=== PATIENT | female | born 1985 | race Caucasian/White ===

== ENCOUNTER 2017-12-11 15:01 | Observation (INO) | payer MEDICAID ==
[~2017-12-11] VITALS: Ht 167.6 cm; Wt 109.8 kg
[2017-12-11] MEDS ORDERED: PREN-380 PO (15:31)
== END 2017-12-11 19:56 | disposition home or self-care (01) ==
LOC: MLD 15:01
PROVIDERS: ADMIT Obstetrics & Gynecology; ATTEND Obstetrics & Gynecology
DX: O26.893 Other specified pregnancy related conditions, third trimester (principal); R10.9 Unspecified abdominal pain; Z3A.39 39 weeks gestation of pregnancy
CPT/HCPCS: 76805; G0378; Q0092

== ENCOUNTER 2017-12-18 17:48 | Inpatient (IN) | payer MEDICAID ==
[~2017-12-18] VITALS: Ht 167.6 cm; Wt 114.3 kg
[~2017-12-18 17:48] MED LIST: PREN-380 PO
[2017-12-18] MEDS ORDERED: OXYTOCIN 10 UNITS/ML VIAL IM SCH (19:00)
[2017-12-18] MEDS ORDERED: NALBUPHINE 10 MG/ML AMP IVP PRN ×2 (19:00→19:35)
[2017-12-18] MEDS ORDERED: METHYLERGONOVINE 0.2 MG/ML AMP IM PRN (19:00)
[2017-12-18] MEDS ORDERED: CARBOPROST 250 MCG/ML AMP IM PRN (19:00)
[2017-12-18] MEDS ORDERED: PROMETHAZINE 25 MG/ML VIAL IVP PRN (19:00)
[2017-12-18] MEDS ORDERED: MISOPROSTOL 25 MCG TAB VG SCH (20:00)
[2017-12-18] MEDS: LACTATED RINGERS 1,000 ML IV SCH (20:04)
[2017-12-18 20:06] LABS: BASOPHILS % (AUTO) 0.2 % (0.0-2.0); EOSINOPHILS # (AUTO) 0.3 K/uL (0-0.4); EOSINOPHILS % (AUTO) 2.6 % (0.0-4.0); HEMOGLOBIN 12.9 g/dL (12.0-16.0); LYMPHOCYTES # (AUTO) 1.9 K/uL (2.5-16.5); MEAN CORPUSCULAR HEMOGLOBIN 28 pg (27-31); MEAN CORPUSCULAR HGB CONC 33 g/dL (33-37); MEAN CORPUSCULAR VOLUME 83.3 fL (80-94); MONOCYTES # (AUTO) 0.7 K/uL (0.8-1.0); MONOCYTES % (AUTO) 6.9 % (1.7-9.3); NEUTROPHILS # (AUTO) 7.2 K/uL (1.8-7.7); NEUTROPHILS % (AUTO) 71.3 % (42.2-75.2); PLATELET COUNT (AUTO) 130 K/uL (140-450); RED BLOOD CELL COUNT(AUTO) 4.68 MIL/uL (4.20-5.40); RED CELL DISTRIBUTION WIDTH 13.6 % (11.6-13.7); WHITE BLOOD COUNT (AUTO) 10.1 K/uL (4.8-10.8)
[2017-12-18 20:12] LABS: APPEARANCE,URINE CLEAR (CLEAR); BILIRUBIN,URINE NEGATIVE (NEGATIVE); BLOOD, URINE NEGATIVE (NEGATIVE); COLOR,URINE YELLOW (YELLOW); LEUKOCYTE ESTERASE ,URINE NEGATIVE (NEGATIVE); NITRITE, URINE NEGATIVE (NEGATIVE); UGLUCOSE NEGATIVE (NEGATIVE)
[2017-12-18] MEDS ORDERED: MISOPROSTOL 25 MCG TAB ONE (20:20)
[2017-12-18 20:25] LABS: CARBON DIOXIDE 22.7 mmol/L (21-32); CREATININE 0.6 mg/dL (0.6-1.3); POTASSIUM 3.7 mmol/L (3.5-5.1)
[2017-12-18 20:36] LABS: ALBUMIN 2.6 g/dL (3.4-5.0); TOTAL BILIRUBIN 0.3 mg/dL (0.0-1.0)
[2017-12-18] MEDS ORDERED: OXYTOCIN 20 UNITS in LACTATED RINGERS 1,000 ML IV SCH (21:00)
[2017-12-19] MEDS ORDERED: OXYTOCIN 20 UNITS/LR PREMIX 1,000 ML IV ONE (03:51)
[2017-12-19] MEDS: LACTATED RINGERS 1,000 ML IV SCH ×3 (05:00→22:48)
--- NOTE | 2017-12-19 09:37 | NUR ---
PATIENT HAS BEEN SCREENED AND CATEGORIZED LOW NUTRITION RISK. PATIENT WILL BE SEEN WITHIN 7 DAYS OF ADMISSION. 12/25/[address]
[2017-12-19] MEDS ORDERED: AMPICILLIN 2,000 MG VIAL ONE ×2 (18:31→22:44)
[2017-12-19] MEDS ORDERED: AMPICILLIN 2,000 MG in NACL 0.9% 100 ML IV SCH (19:30)
[2017-12-19] MEDS: AMPICILLIN 2,000 MG in NACL 0.9% 100 ML IV SCH (22:48)
[2017-12-20] MEDS ORDERED: AMPICILLIN 2,000 MG VIAL ONE ×2 (03:59→07:55)
[2017-12-20] MEDS: AMPICILLIN 2,000 MG in NACL 0.9% 100 ML IV SCH (04:13)
[2017-12-20] MEDS ORDERED: OXYTOCIN 20 UNITS/LR PREMIX 1,000 ML IV ONE (06:21)
[2017-12-20] MEDS: LACTATED RINGERS 1,000 ML IV SCH (07:59)
[2017-12-20] MEDS ORDERED: BUPIVACAINE 0.125%/NS PREMIX 250 ML ONE (08:56)
[2017-12-20] MEDS ORDERED: NALBUPHINE 10 MG/ML AMP ONE (10:51)
[2017-12-20] MEDS ORDERED: PROMETHAZINE 25 MG/ML VIAL ONE (10:51)
[2017-12-20] MEDS ORDERED: OXYTOCIN 10 UNITS/ML VIAL ONE (11:50)
[2017-12-20] MEDS ORDERED: LIDOCAINE 2% 1000 MG/50 ML VIAL INJ ONE (11:51)
[2017-12-20] MEDS ORDERED: LIDOCAINE MPF 2% 100 MG/5 ML VIAL INJ ONE (12:55)
[2017-12-20] MEDS ORDERED: LIDOCAINE MPF 1% - 5 mL VIAL 0 ML ONE (12:56)
[2017-12-20] MEDS ORDERED: OXYTOCIN 20 UNITS in LACTATED RINGERS 1,000 ML IV SCH (13:39)
[2017-12-20] MEDS ORDERED: BENZOCAINE/MENTHOL 20%-0.5% 60 GM CAN TP PRN (13:40)
[2017-12-20] MEDS ORDERED: ACETAMINOPHEN 325 MG TAB PO PRN (13:40)
[2017-12-20] MEDS ORDERED: IBUPROFEN 600 MG TAB PO PRN (13:40)
[2017-12-20] MEDS ORDERED: MEASLES, MUMPS, AND RUBELLA 1 VIAL SQVAC PRN (13:40)
[2017-12-21 10:18] LABS: HEMATOCRIT 35.1 % (36-48); HEMOGLOBIN 11.5 g/dL (12.0-16.0)
== END 2017-12-22 14:30 | disposition home or self-care (01) | DRG 560 ==
LOC: MLD 17:48 → MFCC 12-20 17:30
PROVIDERS: ADMIT Obstetrics & Gynecology; ATTEND Obstetrics & Gynecology
PROC: 10E0XZZ Delivery of Products of Conception, External Approach (ICD-10-PCS; principal; 2017-12-20)
PROC: 3E033VJ Introduction of Other Hormone into Peripheral Vein, Percutaneous Approach (ICD-10-PCS; 2017-12-20)
PROC: 0HQ9XZZ Repair Perineum Skin, External Approach (ICD-10-PCS; 2017-12-20)
PROC: 00HU33Z Insertion of Infusion Device into Spinal Canal, Percutaneous Approach (ICD-10-PCS; 2017-12-20)
PROC: 3E0R3BZ Introduction of Anesthetic Agent into Spinal Canal, Percutaneous Approach (ICD-10-PCS; 2017-12-20)
PROC: 3E0234Z Introduction of Serum, Toxoid and Vaccine into Muscle, Percutaneous Approach (ICD-10-PCS; 2017-12-21)
PROC: 3E0234Z Introduction of Serum, Toxoid and Vaccine into Muscle, Percutaneous Approach (ICD-10-PCS; 2017-12-21)
DX: O69.1XX0 Labor and delivery complicated by cord around neck, with compression, not applicable or unspecified (principal); Z68.41 Body mass index [BMI] 40.0-44.9, adult; O99.214 Obesity complicating childbirth; E66.9 Obesity, unspecified; O70.0 First degree perineal laceration during delivery; Z37.0 Single live birth; Z3A.40 40 weeks gestation of pregnancy; Z23 Encounter for immunization
CPT/HCPCS: 36415; 51702; 59200; 59409; 76815; 80053; 81003; 85018; 85025; 86592; 86886; 86900; 86901; 90707; 90715; J0290; J2001; J2300; J2550; J2590; J3490; J7120; Q0092